=== PATIENT | female | born 2000 | race Asian ===

== ENCOUNTER 2020-03-14 13:15 | Emergency (ER) | payer OTHER ==
[~2020-03-14] VITALS: Ht 149.9 cm; Wt 64.5 kg
[2020-03-14] MEDS ORDERED: bcp (13:22)
[2020-03-14] MEDS ORDERED: SODIUM CHLORIDE NASAL 0.65% SPRAY BTL (OCEAN) STA (14:14)
[2020-03-14 14:30] VITALS: BP 120/77
== END 2020-03-14 14:38 | disposition home or self-care (01) ==
LOC: M ED 13:15
DX: R04.0 Epistaxis (principal)

== ENCOUNTER 2021-06-15 18:20 | Emergency (ER) | payer OTHER ==
[~2021-06-15] VITALS: Ht 152.4 cm; Wt 66.0 kg
[~2021-06-15 18:20] MED LIST: bcp
[2021-06-15 18:23] VITALS: BP 137/91
--- OUTSIDE RECORDS SUMMARY | 2021-06-15 18:28 | CCD ---
Author Author [facility] Address Unknown Phone Unavailable Support Name Relationship Address Phone CELESTINO Next Of Kin [address] [place], [place] [phone] Re-disclosure Warning The records that you are about to access may contain information from federally-assisted alcohol or drug abuse programs. If such information is present, then the following federally mandated warning applies: This information has been disclosed to you from records protected by federal confidentiality rules (42 CFR part 2). The federal rules prohibit you from making any further disclosure of this information unless further disclosure is expressly permitted by the written consent of the person to whom it pertains or as otherwise permitted by 42 CFR part 2. A general authorization for the release of medical or other information is NOT sufficient for this purpose. The Federal rules restrict any use of the information to criminally investigate or prosecute any alcohol or drug abuse patient.The records that you are about to access may contain highly sensitive health information, the redisclosure of which is protected by Article 27-F of the [facility] Public Health law. If you continue you may have access to information: Regarding HIV / AIDS; Provided by facilities licensed or operated by the [facility] Office of Mental Health; or Provided by the [facility] Office for People With Developmental Disabilities. If such information is present, then the following [facility] mandated warning applies: This information has been disclosed to you from confidential records which are protected by state law. State law prohibits you from making any further disclosure of this information without the specific written consent of the person to whom it pertains, or as otherwise permitted by law. Any unauthorized further disclosure in violation of state law may result in a fine or intermediate sentence or both. A general authorization for the release of medical or other information is NOT sufficient authorization for further disc losure. Medications Medication Brand Name Start Date Product Form Dose Route Admi nistrative Instructions Pharmacy Instructions Status Indications Reaction Description Data Source(s) 20 mg 06/06/2020 12:00:00 AM EDT tablet 10 TAKE TWO TABLETS BY MOUTH EVERY DAY FOR 5 DAYS TAKE TWO TABLETS BY MOUTH EVERY DAY FOR 5 DAYS SOLD: [facility] Insurance Providers Payer name Policy type / Coverage type Policy ID Covered democrat ID Covered democrat's relationship to aguirre Policy Aguirre Plan Information [facility] [id number] [facility] [id number] Problems, Conditions, and Diagnoses No Information Surgeries/Procedures No Information Results No Information Social History No Information
[2021-06-15] MEDS ORDERED: CYRE1TAB3 PO (18:29)
--- OUTSIDE RECORDS SUMMARY | 2021-06-15 19:27 | CCD ---
Author Author [facility] Address Unknown Phone Unavailable Support Name Relationship Address Phone CELESTINO Next Of Kin [facility] [address] [place], [place] [phone] Re-disclosure Warning The records that you are [...] is protected by Article 27-F of the [facility] Public Health law. If you continue you may have access to information: Regarding HIV / AIDS; Provided by facilities licensed or operated by the [facility] Office of Mental Health; or Provided by the [facility] Office for People With Developmental Disabilities. If such information is present, then the following [facility] mandated warning applies: This information has [...] law may result in a fine or penitentiary sentence or both. A general authorization for [...] type / Coverage type Policy ID Covered alliance party ID Covered alliance party's relationship to aguirre Policy Aguirre Plan Information [facility] [id number] [facility] [id number] Problems, Conditions, and Diagnoses No Information Surgeries/Procedures No Information Results No Information Social History No Information
== END 2021-06-15 20:22 | disposition left against medical advice (07) ==
LOC: M ED 18:20
DX: Z53.21 Procedure and treatment not carried out due to patient leaving prior to being seen by health care provider (principal)

== ENCOUNTER 2022-02-27 22:39 | Emergency (ER) | payer OTHER ==
[~2022-02-27] VITALS: Ht 152.4 cm; Wt 58.8 kg
[~2022-02-27 22:39] MED LIST changes: +CYRE1TAB3 PO
[2022-02-27 22:40] VITALS: BP 137/95
== END 2022-02-28 04:18 | disposition home or self-care (01) ==
LOC: M ED 22:39
DX: H43.392 Other vitreous opacities, left eye (principal); Z79.899 Other long term (current) drug therapy

== ENCOUNTER → 2022-03-13 | Outpatient (CLI) | payer OTHER ==
[2022-03-15 05:07] LABS: HERPES ZOSTER, VARICELLA IgG <135 index (Immune >165); RUBEOLA IgG ANTIBODY <13.5 AU/mL (Immune >16.4)
== END ==
LOC: M WUC 11:13
PROVIDERS: ATTEND Physician Assistant
DX: Z02.0 Encounter for examination for admission to educational institution (principal)